=== PATIENT | female | born 1995 | race Caucasian/White ===

== ENCOUNTER 2016-06-08 10:44 | Inpatient (IN) | payer OTHER ==
[~2016-06-08] VITALS: Ht 160 cm; Wt 68.0 kg
[2016-06-08 10:54] VITALS: BP 110/55; Ht 160 cm; Wt 68.0 kg
[2016-06-08] MEDS ORDERED: PREN1TAB17 PO (10:56)
--- NOTE | 2016-06-08 11:39 | RADRPT ---
PROCEDURE: US biophysical profile. CLINICAL INDICATION: Decreased motion. TECHNIQUE: Multiple sonographic images of the uterus were obtained. The images were revi ewed on a PACS workstation. COMPARISON: No prior studies are available for comparison. FINDINGS: There is a single live intrauterine gestation. heart rate is 124 beats per minute. The position is cephalic. The placenta is fundal grade II with no abruption or previa. The FEI is 10.8 cm. (Normal = 5-20 cm.) Breathing Movement: 2 Gross Body Movement: 2 Tone: 2 Qualitative Amniotic Fluid Volume: 2 TOTAL: 8 IMPRESSION: 1. The biophysical score is 8/8. RPTAT: QQ .Darrick Arndt MD, MD Date Time Electronically viewed and signed by .Darrick Arndt MD, on 06/08/2016 11:39 .R/
[2016-06-08 12:08] LABS: ALBUMIN 3.2 g/dl (3.3-4.9)
[2016-06-08 12:09] LABS: POTASSIUM 3.7 mmol/L (3.5-5.1)
[2016-06-08 12:11] LABS: ALBUMIN/GLOBULIN RATIO 0.88; BILIRUBIN,INDIRECT 0.8 mg/dl (0-1.1); BILIRUBIN,TOTAL 0.8 mg/dl (0.2-1.3); CREATININE 0.47 mg/dl (0.44-1.00); TOTAL PROTEIN 6.8 g/dl (6.1-8.1)
[2016-06-08 12:12] LABS: CALCIUM 8.6 mg/dl (8.4-10.2)
--- NOTE | 2016-06-08 14:00 | TRIAGE ---
OB Triage Datetime Report Generated by CPN: 06/08/2016 13:59 Datetime: 06/08/2016 13:49 Vaginal Exam Dilatation (cms): 0.0 Effacement (%): 50 Station: -3 Exam By: DR. ZAY Datetime: 06/08/2016 13:07 Stage of : OB Triage Labor Evaluation Frequency: 0 Monitor Mode: External Pattern: Normal: <= 5 Contractions in 10 Minutes Resting Tone [place]: Non Relaxed Contraction Comments: PATIENT MOVING HAS 1 YEAR OLD INFANT ON HER STOMACH Heart Rate FHR Baseline Rate: 135 Monitor Mode: External US Decelerations: None Category: Category I Pain Assessment Pain Scale: 0 Datetime: 06/08/2016 11:51 Stage of : OB Triage Labor Evaluation Frequency: 0 Monitor Mode: External Heart Rate FHR Baseline Rate: 135 Monitor Mode: External US Decelerations: None Category: Category I Pain Presence: None/Denies Pain Type: N/A Datetime: 06/08/2016 10:58 Stage of : OB Triage Assessment Type: Triage EGA: 37.0 Time Provider Notified: 06/08/2016 11:03 Provider Notified: DR. Zay Maternal Assessment Level of Consciousness: Fully Conscious DTR's/Clonus: DTRs 2+; No Clonus Headache: Denies Blurred Vision: No Respiratory Effort: Unlabored; Regular Rhythm; Equal Expansion Breath Sounds, Left: Clear and Equal Breath Sounds, Right: Clear and Equal Nausea/Vomiting: Denies RUQ Epigastric Pain: Denies Lower Extremities Edema: None Degree: None Upper Extremities Edema: None Degree: None Facial Edema: None Temperature Route: Oral Fall Risk Assessment History of Falling: (0) No Secondary Diagnosis: (0) No Ambulatory Aid: (0) Bedrest/Nurse Assist IV Therapy: (0) No Gait: (0) Normal/Bedrest/Immobile Mental Status: (0) Oriented to Own Ability Fall Score: 0 Fall Risk Score Definition: No Risk: No action required Labor Evaluation Frequency: 0 Monitor Mode: External Heart Rate FHR Baseline Rate: 135 Monitor Mode: External US Variability: Moderate 6-25 bpm Accelerations: 15X15 Decelerations: None Category: Category I Pain Assessment Pain Scale: 0 Pain Presence: None/Denies Pain Type: N/A Datetime: 06/08/2016 10:57 Time of Arrival: 06/08/2016 10:40 Arrived By: Ambulatory Arrived From: Home Chief Complaint: ITCHING, FEET ARMS Movement: Present Rupture of Membranes: Denies Vaginal Bleeding: None Vaginal Discharge: Denies Recent Sexual Intercouse: Denies Abdominal Trauma: Not Applicable Patient Complaints: Other Time Provider Notified: 06/08/2016 11:03 Provider Notified: DR. COLLAZO Initial Plan: [id number], CALL MD, CALLED DR. COLLAZO ORDERS BPP/FEI, BILE ACIDS, CMP, SERUM LIPASE
[2016-06-08] MEDS ORDERED: METHYLERGONOVINE 0.2 MG INJ IM PRN (14:30)
[2016-06-08] MEDS ORDERED: OXYTOCIN 30 UNITS/LR 500 ML IV SCH ×2 (14:30)
[2016-06-08] MEDS ORDERED: MISOPROSTOL 200 MCG TAB PR PRN (14:30)
[2016-06-08] MEDS ORDERED: CARBOPROST 250 MCG INJ IM PRN (14:30)
[2016-06-08] MEDS ORDERED: LIDOCAINE 1% (MPF) 30 ML INJ INJ PRN (14:30)
[2016-06-08] MEDS ORDERED: DINOPROSTONE 10 MG VAG SUPP VAG ONE (14:30)
[2016-06-08] MEDS ORDERED: BUTORPHANOL 2 MG INJ IV PRN (14:30)
[2016-06-08] MEDS ORDERED: OXYTOCIN 30 UNITS/LR 500 ML IV PRN (14:30)
[2016-06-08] MEDS: LACTATED RINGER'S 1,000 ML IV SCH (16:33)
[2016-06-08 16:54] LABS: ADD SCAN DIFF NO
[2016-06-08 16:56] LABS: BASOPHILS % 0.2 % (0.0-2.0); EOSINOPHILS # 0.1 10^3/ul (0.0-0.5); HEMATOCRIT 29.6 % (37.0-47.0); HEMOGLOBIN 9.1 g/dl (12.0-16.0); LYMPHOCYTES # 2.1 10^3/ul (0.8-2.9); LYMPHOCYTES % 23.8 % (15.0-51.0); MEAN CORPUSCULAR HEMOGLOBIN 24.6 pg (29.0-33.0); MEAN CORPUSCULAR HGB CONC 30.7 g/dl (32.0-37.0); MEAN PLATELET VOLUME 10.8 fl (7.4-10.4); MONOCYTE # 0.5 10^3/ul (0.3-0.9); MONOCYTES % 5.4 % (0.0-11.0); NEUTROPHIL # 6.1 10^3/ul (1.6-7.5); NEUTROPHILS % 68.8 % (39.0-77.0); NUCLEATED RED BLOOD CELLS% 0.3 /100WBC (0.0-0.0); PLATELET COUNT 254 10^3/UL (140-415); RED CELL DISTRIBUTION WIDTH 15.9 % (11.5-14.5); WHITE BLOOD COUNT 8.9 10^3/ul (4.8-10.8)
--- NOTE | 2016-06-08 17:01 | HP ---
Date/Time of Note Date/Time of Note DATE: 06/08/16 TIME: 16:46 OB - History Hx of Present Free Text/Dictation This is a 20 years old female S 2 I 0 L3 admitted to [facility] with a chief complaint of total body itching started for 5 days prior to this admission patient is being admitted with tentative diagnosis of cholestasis of perinatology consult recommended delivery, pelvic examination on abdomen cervix closed effacement 50% presenting part vertex at - 3 station plan of delivery by induction of labor discussed with the patient and she is transferred to the L&D for induction / Estimated Due Date: June 29, 2016 : 7 Para: 3 Spontaneous : 2 Therapeutic : 0 Care: Good Care Ultrasounds: Normal mid trimester US Obstetrical Complications: None Medical Complications: None Past Family/Social History * Past Medical, Surgical, Family and Obstetric Histories reviewed from chart. Rubella: immune RPR/VDRL: Negative GBS Status: Negative HBsAG: Negative OB Admission Exam Vital Signs Vital Signs Vital Signs Date Time Temp Pulse Resp B/P Pulse Ox O2 Delivery O2 Flow Rate FiO2 06/08/16 10:54 98.0 110/55 Room Air Physical Exam HEENT: WNL Heart: Rhythm Normal Lungs: Clear, Equal Abdomen: WNL Extremities: Normal Reflexes: Normal Cervical Dilatation: None Effacement: 50% Station: -2 Membranes: Intact Heart Rate: 130's Accelerations: Accelerations Present Decelerations: No Decelerations Varibility: Absent Last 72 hours Lab Results CBC & BMP 06/08/16 11:40 Liver Function Test 06/08/16 11:40 Alanine Aminotransferase (ALT/SGPT) 14 Albumin 3.2 L Alkaline Phosphatase 118 Aspartate Amino Transf (AST/SGOT) 19 Direct Bilirubin 0.00 Total Protein 6.8 OB Assessment/Plan Reason for admission: induction of labor Plan: Induction MARGARET COLLAZO MD Jun 08, 2016 16:56
[2016-06-08 17:09] LABS: INR 1.03; PROTIME 13.5 Sec (12.2-14.2); PT RATIO 1.1
[2016-06-08 17:10] LABS: PARTIAL THROMBOPLASTIN TIME 29.5 Sec (25.0-35.0)
[2016-06-08] MEDS: LACTATED RINGER'S 1,000 ML IV PRN ×3 (22:10→23:55)
[2016-06-08] MEDS ORDERED: FENTAnyl 2MCG/ML-ROPIV 0.2% 100 ML ONE (23:47)
[2016-06-09] MEDS ORDERED: FENTAnyl 2MCG/ML-ROPIV 0.2% 100 ML BAG EPI SCH (00:30)
[2016-06-09] MEDS ORDERED: NALOXONE (0.4 MG/ML) INJ IV PRN (00:30)
[2016-06-09] MEDS: LACTATED RINGER'S 1,000 ML IV SCH (00:56)
[2016-06-09] MEDS: LACTATED RINGER'S 1,000 ML IV PRN ×2 (00:57→02:06)
[2016-06-09] MEDS ORDERED: OXYTOCIN 30 UNITS/LR 500 ML IV SCH (03:22)
[2016-06-09] MEDS: LACTATED RINGER'S 1,000 ML IV* SCH ×3 (03:22→19:22)
[2016-06-09] MEDS ORDERED: LANOLIN 7 GM TUBE TOP PRN (03:30)
[2016-06-09] MEDS ORDERED: MISOPROSTOL 200 MCG TAB PR PRN (03:30)
[2016-06-09] MEDS ORDERED: METHYLERGONOVINE 0.2 MG INJ IM PRN (03:30)
[2016-06-09] MEDS ORDERED: CARBOPROST 250 MCG INJ IM PRN (03:30)
[2016-06-09] MEDS ORDERED: OXYCODONE/ASPIRIN (4.88/325) TAB PO PRN (03:30)
[2016-06-09] MEDS ORDERED: OXYTOCIN 30 UNITS/LR 500 ML IV PRN (03:30)
--- NOTE | 2016-06-09 03:30 | LDN ---
Date/Time of Note Date/Time of Note DATE: 06/09/16 TIME: 03:27 Delivery Summary of a viable baby boy weighing 3190 grams or 7#1oz, 19" long, and with Apgars of 8/9. Weeks of Gestation 37w 1d Placenta Delivered: Spontaneously Meconium: none Episiotomy: No Perineal laceration: 0 Anesthesia type: Epidural Estimated blood loss: 200 Sponge & Needle done & correct: Yes All needle counts correct: Yes Any foreign bodies felt in the: No (vagina) Problems: Infant Delivery Information Sex Infant Sex: male Apgars 1 Minute: 8 5 Minute: 9 Suctioning Nose & mouth suctioned at toshia: No Delee suction performed: Yes Umbilical Cord Umbilical cord with: 3 Vessels Cord presentations: no nuchal cord Cord Blood was obtained: Yes Mother & Baby Disposition Disposition Mom & Baby to Maternity; Good: Yes Baby to NICU: No DINESH AYALA MD Jun 09, 2016 03:30
[2016-06-09 05:50] VITALS: BP 116/59; PULSE 69; RESP 20
[2016-06-09] MEDS: IBUPROFEN 600 MG TAB PO SCH ×3 (06:00→18:52)
[2016-06-09 08:00] VITALS: BP 106/57; PULSE 66; RESP 18
[2016-06-09 12:30] VITALS: BP 99/55; PULSE 80; RESP 19
[2016-06-09 16:41] VITALS: BP 108/51; PULSE 62; RESP 18
[2016-06-09 20:00] VITALS: BP 104/56; PULSE 61; RESP 19
[2016-06-10] MEDS: IBUPROFEN 600 MG TAB PO SCH ×4 (00:09→17:57)
[2016-06-10] MEDS: LACTATED RINGER'S 1,000 ML IV* SCH ×2 (01:12→06:40)
[2016-06-10 04:00] VITALS: BP 100/53; PULSE 74; RESP 18
[2016-06-10 08:10] VITALS: BP 104/56; PULSE 67; RESP 18
[2016-06-10 08:24] LABS: ADD SCAN DIFF NO
[2016-06-10 08:35] LABS: BASOPHILS % 0.3 % (0.0-2.0); EOSINOPHILS # 0.2 10^3/ul (0.0-0.5); EOSINOPHILS % 1.9 % (0.0-7.0); HEMATOCRIT 32.1 % (37.0-47.0); HEMOGLOBIN 9.3 g/dl (12.0-16.0); LYMPHOCYTES # 4.3 10^3/ul (0.8-2.9); LYMPHOCYTES % 36.4 % (15.0-51.0); MEAN CORPUSCULAR HEMOGLOBIN 24.1 pg (29.0-33.0); MEAN CORPUSCULAR VOLUME 83.2 fl (82.0-101.0); MEAN PLATELET VOLUME 11.2 fl (7.4-10.4); MONOCYTE # 0.8 10^3/ul (0.3-0.9); MONOCYTES % 6.3 % (0.0-11.0); NEUTROPHIL # 6.5 10^3/ul (1.6-7.5); NEUTROPHILS % 54.3 % (39.0-77.0); NUCLEATED RED BLOOD CELLS% 0.2 /100WBC (0.0-0.0); PLATELET COUNT 234 10^3/UL (140-415); RED BLOOD COUNT 3.86 10^6/ul (4.20-5.40); RED CELL DISTRIBUTION WIDTH 16.4 % (11.5-14.5); WHITE BLOOD COUNT 11.9 10^3/ul (4.8-10.8)
--- NOTE | 2016-06-10 09:13 | PN ---
Date/Time of Note Date/Time of Note DATE: 06/10/16 TIME: 09:12 OB Subjective Subjective Subjective Post normal vaginal day 1 Afebrile vital signs stable, abdomen soft uterus firm lochia moderate extremity normal Laboratory Tests Test 06/10/16 07:40 White Blood Count 11.910^3/ul Red Blood Count 3.8610^6/ul Hemoglobin 9.3g/dl Hematocrit 32.1% Mean Corpuscular Volume 83.2fl Mean Corpuscular Hemoglobin 24.1pg Mean Corpuscular Hemoglobin Concent 29.0g/dl Red Cell Distribution Width 16.4% Platelet Count 61508^3/UL Mean Platelet Volume 11.2fl Neutrophils % 54.3% Lymphocytes % 36.4% Monocytes % 6.3% Eosinophils % 1.9% Basophils % 0.3% Nucleated Red Blood Cells % 0.2/100WBC Neutrophils # 6.510^3/ul Lymphocytes # 4.310^3/ul Monocytes # 0.810^3/ul Eosinophils # 0.210^3/ul Basophils # 0.010^3/ul Nucleated Red Blood Cells # 0.010^3/ul Current Medications Medications (Trade) Dose Ordered Sig/Lisa Route PRN Reason Start Time Stop Time Status Last Admin Dose Admin Lactated Ringer's (Lr) 1,000 ml @ 125 mls/hr Q8H IV 06/08/16 14:10 06/09/16 03:26 DC 06/08/16 16:33 Dinoprostone (Cervidil Vaginal Supp) 10 mg ONCE ONCE VAG 06/08/16 14:30 06/08/16 14:31 DC 06/08/16 17:22 Butorphanol Tartrate (Stadol) 2 mg Q2H PRN IV PAIN 06/08/16 14:30 06/09/16 03:26 DC Lidocaine 30 ml 30 ml ONCE PRN INJ EPISIOTOMY/TEARING 06/08/16 14:30 06/09/16 03:26 DC Oxytocin/Lactated Ringer's 500 ml @ 125 mls/hr ONCE -MAY REPEAT X1 IV 06/08/16 14:30 06/09/16 03:26 DC 06/09/16 03:24 Oxytocin/Lactated Ringer's 500 ml @ 125 mls/hr ONCE IV 06/08/16 14:30 06/09/16 03:26 DC Oxytocin/Lactated Ringer's 500 ml @ 0 mls/hr ONCE PRN IV For Hemorrhage Management 06/08/16 14:30 06/09/16 03:27 DC Methylergonovine Maleate (Methergine) 0.2 mg ONCE PRN IM VAGINAL BLEEDING 06/08/16 14:30 06/09/16 03:27 DC Carboprost Tromethamine (Hemabate) 250 mcg ONCE PRN IM VAGINAL BLEEDING 06/08/16 14:30 06/09/16 03:27 DC Misoprostol 1000 mcg 1,000 mcg ONCE PRN [place] VAGINAL BLEEDING 06/08/16 14:30 06/09/16 03:27 DC Lactated Ringer's 1,000 ml @ 2,000 mls/hr Q30M PRN IV PRE-EPIDURAL BOLUS 06/08/16 22:10 06/09/16 03:27 DC 06/09/16 02:06 Fentanyl/ Ropivacaine 100 ml @ ud STK-MED ONCE .ROUTE 06/08/16 23:47 06/08/16 23:48 DC Naloxone HCl (Narcan) 0.2 mg Q2M PRN IV FOR RESP RATE 8 OR LESS 06/09/16 00:30 06/09/16 03:27 DC Fentanyl/ Ropivacaine 100 ml 100 ml EPIDURAL (PCEA) EPI 06/09/16 00:30 06/09/16 03:27 DC Oxytocin/Lactated Ringer's 500 ml @ 125 mls/hr Q4H IV 06/09/16 03:22 06/09/16 07:21 DC 06/09/16 03:30 Lactated Ringer's (Lr) 1,000 ml @ 125 mls/hr Q8H IV* 06/09/16 03:22 06/09/16 06:36 Ibuprofen (Motrin) 600 mg Q6 PO 06/09/16 06:00 06/10/16 05:21 Oxycodone/Aspirin (Percodan) 1 tab Q3H PRN PO PAIN LEVEL 1-5 06/09/16 03:30 06/09/16 22:19 Lanolin (Czv-A-Ltuwmf) 1 applic BEDSIDE MEDICATION PRN TOP BEDSIDE FOR CHRISTIAN TO NIPPLES 06/09/16 03:30 06/09/16 18:52 Diphtheria/ Tetanus/Acell Pertussis 0.5 ml 0.5 ml ONCE ONCE IM* 06/11/16 09:00 06/11/16 09:01 Oxytocin/Lactated Ringer's 500 ml @ 0 mls/hr ONCE PRN IV For Hemorrhage Management 06/09/16 03:30 Methylergonovine Maleate (Methergine) 0.2 mg ONCE PRN IM VAGINAL BLEEDING 06/09/16 03:30 Carboprost Tromethamine (Hemabate) 250 mcg ONCE PRN IM VAGINAL BLEEDING 06/09/16 03:30 Misoprostol (Cytotec) 1,000 mcg ONCE PRN [place] VAGINAL BLEEDING 06/09/16 03:30 MARGARET COLLAZO MD Jun 10, 2016 09:13
[2016-06-10 16:37] VITALS: BP 119/61; PULSE 52; RESP 17
[2016-06-10 19:30] VITALS: BP 131/68; PULSE 64; RESP 16
[2016-06-11] MEDS: IBUPROFEN 600 MG TAB PO SCH ×5 (00:41→18:00)
[2016-06-11 04:00] VITALS: BP 117/64; PULSE 66; RESP 18
[2016-06-11 08:00] VITALS: BP 117/57; PULSE 65; RESP 18
[2016-06-11] MEDS ORDERED: DIPHTH/TET/ACEL PERTUSS (ADULT) 0.5 ML VIAL IM* ONE (09:00)
--- NOTE | 2016-06-11 09:57 | PD.PPDC ---
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 Condition Patient Condition: Good Diet Diet: Resume Regular Diet Activity/Restrictions Activity: Normal Activity May Shower Restrictions: No Exercising No Lifting No Driving No Sexual Activity Nothing in the Vagina No [place] No Tampons, douche Follow-up Follow-up with Physician: 2, Week/Weeks Provider Information: Appointment clinic in 2 weeks for check Return to clinic for HOME AIDE Instructions: Fever greater than 101 Chills Worsening abdominal pain Excessive Vaginal Bleeding More than 2 pads per hour Unable to tolerate diet OB Instructions: Depression Blurried Vision Headache MARGARET COLLAZO MD Jun 11, 2016 09:57
--- NOTE | 2016-06-11 09:59 | DS ---
Date/Time of Note Date/Time of Note DATE: 06/11/16 TIME: 09:58 Discharge Summary Admission/Discharge Info Admit Date/Time Jun 08, 2016 at 14:01 Discharge Date/Time June 11, 2016 at 1055 Final Diagnosis Day 2 post normal vaginal delivery Patient Condition: Good Procedures Normal vaginal delivery Hx of Present Illness Term Hospital Course Uneventful Home Meds Reported Medications Vit-Iron Fumarate-FA ( Tablet) 1 Each Tablet, 1 TAB PO DAILY, TAB 06/08/16 Follow-up Plan Appointment clinic in 2 weeks for follow-up MARGARET COLLAZO MD Jun 11, 2016 09:59
[2016-06-11 16:09] VITALS: BP 124/69; PULSE 54; RESP 20
[2016-06-12 17:33] LABS: CHENODEOXYCHOLIC ACID 0.7 umol/L (< OR = 3.1); CHOLIC ACID <0.5 umol/L (< OR = 1.8); DEOXYCHOLIC ACID <0.5 umol/L (< OR = 2.4); TOTAL BILE ACIDS <1.5 umol/L (< OR = 6.8)
== END 2016-06-11 18:15 | disposition home or self-care (01) | DRG 775 ==
LOC: OBT 10:44 → L-D 10:45 → OBT 13:59 → L-D 14:01 → PP1 06-09 05:50
PROVIDERS: ADMIT Obstetrics & Gynecology; ATTEND Obstetrics & Gynecology
PROC: 4A1HX4Z Monitoring of Products of Conception, Cardiac Electrical Activity, External Approach (ICD-10-PCS; 2016-06-08)
PROC: 10E0XZZ Delivery of Products of Conception, External Approach (ICD-10-PCS; principal; 2016-06-09)
DX: O26.893 Other specified pregnancy related conditions, third trimester (principal); L29.9 Pruritus, unspecified; Z3A.37 37 weeks gestation of pregnancy; Z37.0 Single live birth
CPT/HCPCS: 62319; 76818; 80053; 83690; 83789; 85025; 85610; 85730; 86592; 86900; 86901; 87340; 90715; G0463; J2590; J3010; J7120

== ENCOUNTER 2016-12-01 22:24 | Emergency (ER) | END 2016-12-02 02:50 | disposition home or self-care (01) | DX: R10.10 Upper abdominal pain, unspecified (principal) | CPT/HCPCS: 36415; 76705; 80053; 81001; 83690; 85025; Z7502 ==

== ENCOUNTER 2017-01-01 21:38 | Emergency (ER) | payer OTHER ==
[~2017-01-01] VITALS: Ht 154.9 cm; Wt 61.8 kg
[~2017-01-01 21:38] MED LIST: MAG-19 PO; OMEP20CA16 PO; ONDA4TAB14 PO; PREN1TAB17 PO
[2017-01-01 21:48] VITALS: Ht 154.9 cm; Wt 61.8 kg
--- NOTE | 2017-01-01 21:58 | ERD ---
ER Documentation Chief Complaint Chief Complaint Right flank pain x3 days. Denies dysuria and hematuria HPI This 21 yr old female right sided pelvic pain, late menstruation, hx of ectopic ROS All systems reviewed and are negative except as per history of present illness. Medications Home Meds Active Scripts Nitrofurantoin Monohyd Macrocr* (Macrobid*) 100 Mg Capsr, 100 MG PO BID for 7 Days, #14 CAP Prov:NICOLE,DWIGHT 01/02/17 [id number] Acid ([place] Chewable) 1 Each Tab.chew, 1 TAB PO DAILY for 30 Days, TAB.CHEW Prov:NICOLE,DWIGHT 01/02/17 Ondansetron (Ondansetron Odt) 4 Mg Tab.rapdis, 4 MG PO Q8 Y for NAUSEA AND/OR VOMITING, #30 TAB Prov:MATEUS HERNNADEZ NP 12/02/16 Magaldrate/Simethicone* (Mylanta*) 355 Ml Susp, 30 ML PO QID Y for GASTROINTESTINAL UPSET, #1 BOTTLE Prov:MATEUS HERNANDEZ NP 12/02/16 Omeprazole* (Omeprazole*) 20 Mg Capsule.dr, 20 MG PO DAILY, #30 Prov:MATEUS HERNANDEZ NP 12/02/16 Reported Medications Vit-Iron Fumarate-FA ( Tablet) 1 Each Tablet, 1 TAB PO DAILY, TAB 06/08/16 Allergies Allergies: Coded Allergies: No Known Allergies (Verified Allergy, Unknown, 01/01/17) PMhx/Soc Hx Alcohol Use: No Hx Substance Use: No Hx Tobacco Use: No Physical Exam Vitals Vital Signs Date Time Temp Pulse Resp B/P Pulse Ox O2 Delivery O2 Flow Rate FiO2 01/01/17 21:48 98.8 71 18 117/68 99 Physical Exam Const: [] Head: Atraumatic Eyes: Normal Conjunctiva ENT: Normal External Ears, Nose and Mouth. Neck: Full range of motion..~ No meningismus. Resp: Clear to auscultation bilaterally Cardio: Regular rate and rhythm, no murmurs Abd: Soft, non tender, non distended. Normal bowel sounds Skin: No petechiae or rashes Back: No midline or flank tenderness Ext: No cyanosis, or edema Neur: Awake and alert Psych: Normal Mood and Affect Result Diagram: 01/02/17 0040 01/02/17 0040 Results 24 hrs Laboratory Tests Test 01/01/17 23:05 01/02/17 00:40 Urine Color YELLOW Urine Clarity SLIGHTLY CLOUDY Urine pH 5.0 Urine Specific [place] 1.027 Urine Ketones NEGATIVEmg/dL Urine Nitrite NEGATIVEmg/dL Urine Bilirubin NEGATIVEmg/dL Urine Urobilinogen 1+mg/dL Urine Leukocyte Esterase 1+Cres[place]encio/ul Urine Microscopic RBC 2/HPF Urine Microscopic WBC 9/HPF Urine Squamous Epithelial Cells FEW/HPF Urine Bacteria FEW/HPF Urine Mucus FEW/HPF Urine Hemoglobin NEGATIVEmg/dL Urine Glucose NEGATIVEmg/dL Urine Total Protein NEGATIVEmg/dl White Blood Count 10.610^3/ul Red Blood Count 4.1010^6/ul Hemoglobin 12.2g/dl Hematocrit 36.9% Mean Corpuscular Volume 90.0fl Mean Corpuscular Hemoglobin 29.8pg Mean Corpuscular Hemoglobin Concent 33.1g/dl Red Cell Distribution Width 13.4% Platelet Count 28418^3/UL Mean Platelet Volume 10.8fl Neutrophils % 50.1% Lymphocytes % 39.3% Monocytes % 7.3% Eosinophils % 2.5% Basophils % 0.5% Nucleated Red Blood Cells % 0.0/100WBC Neutrophils # 5.310^3/ul Lymphocytes # 4.210^3/ul Monocytes # 0.810^3/ul Eosinophils # 0.310^3/ul Basophils # 0.110^3/ul Nucleated Red Blood Cells # 0.010^3/ul Sodium Level 143mmol/L Potassium Level 3.9mmol/L Chloride Level 107mmol/L Carbon Dioxide Level 24mmol/L Anion Gap 16 Blood Urea Nitrogen 15mg/dl Creatinine 0.61mg/dl Glucose Level 116mg/dl Calcium Level 9.3mg/dl Total Bilirubin 0.4mg/dl Direct Bilirubin 0.00mg/dl Indirect Bilirubin 0.4mg/dl Aspartate Amino Transf (AST/SGOT) 20IU/L Alanine Aminotransferase (ALT/SGPT) 25IU/L Alkaline Phosphatase 101IU/L Total Protein 7.3g/dl Albumin 4.1g/dl Globulin 3.20g/dl Albumin/Globulin Ratio 1.28 Beta HCG, Quantitative 6285.1mIU/ml Current Medications Medications (Trade) Dose Ordered Sig/Lisa Route PRN Reason Start Time Stop Time Status Last Admin Dose Admin Acetaminophen (Tylenol Tab) 650 mg ONCE ONCE PO 01/01/17 22:00 01/01/17 22:02 DC 01/01/17 22:45 Interpretation text CBC shows no evidence of hemorrhage or infection Chemistry shows no evidence of significant electrolyte abnormalities or renal insufficiency Liver function tests shows no evidence of acute biliary or hepatic dysfunction Beta hCG qualitative 6285.1, suggestive of -6 weeks Urinalysis positive for leukocytosis suggestive of infection. Procedures/MDM PROCEDURE: Ultrasound pelvis. CLINICAL INDICATION: Pelvic pain. TECHNIQUE: Multiple sonographic images of the pelvis were obtained utilizing a transabdominal and transvaginal technique. COMPARISON: None available FINDINGS: Uterus: 8.9 x 6.2 x 8.8 cm. Normal in size and echogenicity with no mass lesion identified. Endometrium: 18 mm in thickness. There is free fluid within the endometrial canal. There is a 7 x 3 mm cystic structure within the endometrium remote from the fluid, which is nonspecific, but may reflect a gestational sac. No pole or yolk sac is identified. Right ovary: Not identified. Left ovary: Not identified. Adnexa: No masses or sonographic abnormality. Free fluid: None. IMPRESSION: 1. Thickened endometrium with nonspecific trace fluid in the endometrial canal. 2. Nonspecific 7 x 3 mm cystic structure within the endometrial remote from the fluid, which may reflect a gestational sac. Correlation with beta HCG as well as short interval follow-up is recommended. RPTAT: HLBP .Redd Jose MD, Date Time Electronically viewed and signed by .Redd Jose MD, MD on 01/02/2017 00:06 21-year-old and 9 para 4, female presents to emergency department with abdominal pain, history of ectopic , 3 days late on menstruation. Patient has not done any [id number]-bqynajg urine test to find if she is . Denies nausea, vomiting, breast tenderness, or dysuria. Emergency room course includes history and physical exam, plan to check for urine and urinalysis, have a non-OB ultrasound, patient ultrasound findings per radiology 1 thickened endometrium with nonspecific trace fluid in the endometrial canal. 2 nonspecific 7 x 3 mm cystic structure within the endometrial remote from the fluid which may reflect a gestational sac correlation with beta hCG as well as short interval follow-up is recommended. Urine positive, serology negative for hemorrhage, infection, electrolyte imbalance, renal insufficiency, hepatitis. Urinalysis positive for leukocytosis suggestive of infection, beta quantitative hCG positive 6285.1mIU/ ml suggestive of 5 months . Plan to have patient return in 48 hours for repeat serology and a OB ultrasound. Return to emergency department for abdominal pain, vaginal bleeding, or worsening of symptoms. Patient is stable with no new complaints during ER course, clinically there is no current evidence to suggest pyelonephritis, ovarian torsion, , sepsis, acute abdomen, or any other emergent condition appearing to require further evaluation or hospitalization. I feel the patient is stable for discharge at this time. I have discussed results, examination findings, the treatment plan with the patient and family present prior to discharge. Indications for emergent reevaluation, side effects of medication were also discussed. All questions were answered. Patient verbalizes understanding and agrees with plan of care. Departure Diagnosis: Primary Impression: at early stage Additional Impression: UTI (urinary tract infection) Urinary tract infection type: acute cystitis Hematuria presence: without hematuria Qualified Code: N30.00 - Acute cystitis without hematuria Condition: Good Patient Instructions: Abdominal Pain, Early Referrals: [employer] [employer] REFERRAL LIST Additional Instructions: Thank you for for coming [facility] for your care today. Please ask your nurse or provider if you have questions about your care today and do not leave until all your questions have been answered. Please use any medications given as directed and follow-up with your doctor (or the doctor you were referred to) in the next 2-3 days. If you do not have a primary care doctor you may follow up at the [facility] (listed below). You may also use motrin and tylenol as needed for fever and/or pain unless instructed otherwise by your provider or nurse. Indications for more urgent follow-up have been discussed, but you may return to the Emergency Department at ANY time for any worrisome or worsening symptoms. If you have abdominal pain, please know that no test or exam you received is perfect and you should follow up within 8 hours for continued pain. If you had any imaging studies today, such as an X-Ray or CT Scan, these studies will be reviewed later by a radiologist. You will be called if there are important findings that were not identified today, so make sure the contact information you provided at registration is correct. If you received any narcotic pain control medicine today, such as Vicodin, Morphine or Dilaudid, your coordination and judgment may be affected for a number of hours. Please do not drive or operate heavy machinery, and you may want someone to assist you at home. If you were given a prescription for narcotic medication, be aware that it is very addictive- use sparingly and only if necessary. DWIGHT RIVERA Jan 01, 2017 21:58
[2017-01-01] MEDS ORDERED: ACETAMINOPHEN 325 MG TAB PO ONE (22:00)
[2017-01-01 23:54] LABS: ADD UMIC YES; UR ASCORBIC ACID NEGATIVE (NEGATIVE); UR BACTERIA FEW /HPF (NONE SEEN); UR BILIRUBIN (Dip) NEGATIVE (NEGATIVE); UR BLOOD (Dip) NEGATIVE (NEGATIVE); UR CLARITY SLIGHTLY CLOUDY (CLEAR); UR COLOR YELLOW (YELLOW); UR GLUCOSE (Dip) NEGATIVE (NEGATIVE); UR KETONES (Dip) NEGATIVE (NEGATIVE); UR LEUKOCYTE ESTERASE (Dip) 1+ Leu/ul (NEGATIVE); UR MUCUS FEW /HPF (NONE SEEN); UR NITRITE (Dip) NEGATIVE (NEGATIVE); UR RBC 2 /HPF (0-5); UR SPECIFIC GRAVITY (Dip) 1.027 (1.003-1.030); UR SQUAMOUS EPITHELIAL CELL FEW /HPF (FEW); UR TOTAL PROTEIN (Dip) NEGATIVE (NEGATIVE); UR UROBILINOGEN (Dip) 1+ mg/dL (NEGATIVE)
--- NOTE | 2017-01-02 00:06 | RADRPT ---
PROCEDURE: Ultrasound pelvis. CLINICAL INDICATION: Pelvic pain. TECHNIQUE: Multiple sonographic images of the pelvis were obtained utilizing a transabdominal and transvaginal technique. COMPARISON: None available FINDINGS: Uterus: 8.9 x 6.2 x 8.8 cm. Normal in size and echogenicity with no mass lesion identified. Endometrium: 18 mm in thickness. There is free fluid within the endometrial canal. There is a 7 x 3 mm cystic structure within the endometrium remote from the fluid, which is nonspecific, but may ref lect a gestational sac. No pole or yolk sac is identified. Right ovary: Not identified. Left ovary: Not identified. Adnexa: No masses or sonographic abnormality. Free fluid: None. IMPRESSION: 1. Thickened endometrium with nonspecific trace fluid in the endometrial canal. 2. Nonspecific 7 x 3 mm cystic structure within the endometrial remote from the fluid, which may re flect a gestational sac. Correlation with beta HCG as well as short interval follow-up is recommende d. RPTAT: HLBP .Redd Jose MD, Date Time Electronically viewed and signed by .Redd Jose MD, on 01/02/2017 00:06 .P/
[2017-01-02 00:57] LABS: BASOPHIL # 0.1 10^3/ul (0.0-0.1); BASOPHILS % 0.5 % (0.0-2.0); EOSINOPHILS # 0.3 10^3/ul (0.0-0.5); EOSINOPHILS % 2.5 % (0.0-7.0); HEMATOCRIT 36.9 % (37.0-47.0); HEMOGLOBIN 12.2 g/dl (12.0-16.0); LYMPHOCYTES # 4.2 10^3/ul (0.8-2.9); LYMPHOCYTES % 39.3 % (15.0-51.0); MEAN CORPUSCULAR HEMOGLOBIN 29.8 pg (29.0-33.0); MEAN CORPUSCULAR HGB CONC 33.1 g/dl (32.0-37.0); MEAN PLATELET VOLUME 10.8 fl (7.4-10.4); MONOCYTE # 0.8 10^3/ul (0.3-0.9); MONOCYTES % 7.3 % (0.0-11.0); NEUTROPHIL # 5.3 10^3/ul (1.6-7.5); NEUTROPHILS % 50.1 % (39.0-77.0); PLATELET COUNT 245 10^3/UL (140-415); RED CELL DISTRIBUTION WIDTH 13.4 % (11.5-14.5); WHITE BLOOD COUNT 10.6 10^3/ul (4.8-10.8)
[2017-01-02 01:40] LABS: ALBUMIN 4.1 g/dl (3.3-4.9); ALBUMIN/GLOBULIN RATIO 1.28; BILIRUBIN,INDIRECT 0.4 mg/dl (0-1.1); BILIRUBIN,TOTAL 0.4 mg/dl (0.2-1.3); CALCIUM 9.3 mg/dl (8.4-10.2); CREATININE 0.61 mg/dl (0.44-1.00); POTASSIUM 3.9 mmol/L (3.5-5.1); TOTAL PROTEIN 7.3 g/dl (6.1-8.1)
[2017-01-02] MEDS ORDERED: NITR-58 PO (02:08)
[2017-01-02] MEDS ORDERED: PREN-47 PO (02:08)
[2017-01-13] MEDS ORDERED: TRAM50TA2 PO (23:47)
[2017-01-13] MEDS ORDERED: Methergine PO (23:47)
[2017-01-13] MEDS ORDERED: IBUP-1542 PO (23:47)
== END 2017-01-02 04:53 | disposition left against medical advice (07) ==
LOC: FTE 21:38
DX: O23.11 Infections of bladder in pregnancy, first trimester (principal); R10.2 Pelvic and perineal pain; Z3A.01 Less than 8 weeks gestation of pregnancy
CPT/HCPCS: 76830; 76856; 80053; 81001; 84702; 85025; Z7502; Z7610

== ENCOUNTER 2017-01-11 19:21 | Emergency (ER) | payer OTHER ==
[~2017-01-11] VITALS: Ht 160 cm; Wt 61.0 kg
[~2017-01-11 19:21] MED LIST changes: +NITR-58 PO; +PREN-47 PO
[2017-01-11 19:55] VITALS: Ht 160 cm; Wt 61.0 kg
[2017-01-11] MEDS ORDERED: ACETAMINOPHEN 500 MG TAB PO STA (21:49)
[2017-01-11] MEDS ORDERED: METOCLOPRAMIDE 10 MG TAB PO ONE (22:00)
[2017-01-11 22:06] LABS: BASOPHIL # 0.1 10^3/ul (0.0-0.1); BASOPHILS % 0.4 % (0.0-2.0); EOSINOPHILS # 0.1 10^3/ul (0.0-0.5); EOSINOPHILS % 1.3 % (0.0-7.0); HEMATOCRIT 39.1 % (37.0-47.0); LYMPHOCYTES # 3.3 10^3/ul (0.8-2.9); LYMPHOCYTES % 29.3 % (15.0-51.0); MEAN CORPUSCULAR HEMOGLOBIN 30.1 pg (29.0-33.0); MEAN CORPUSCULAR HGB CONC 33.2 g/dl (32.0-37.0); MEAN CORPUSCULAR VOLUME 90.5 fl (82.0-101.0); MEAN PLATELET VOLUME 9.5 fl (7.4-10.4); MONOCYTE # 0.7 10^3/ul (0.3-0.9); MONOCYTES % 5.8 % (0.0-11.0); NEUTROPHILS % 62.9 % (39.0-77.0); PLATELET COUNT 234 10^3/UL (140-415); RED BLOOD COUNT 4.32 10^6/ul (4.20-5.40); WHITE BLOOD COUNT 11.2 10^3/ul (4.8-10.8)
--- NOTE | 2017-01-11 22:48 | RADRPT ---
PROCEDURE: US OB. CLINICAL INDICATION: Vaginal bleeding. TECHNIQUE: Transabdominal and transvaginal sonographic evaluation of the pelvis using shell scale an d color Doppler imaging was performed. COMPARISON: Ultrasound dated 01/01/2017. FINDINGS: Single intrauterine with a pole and yolk sac. The crown-rump length equals 0.95 cm. The estimated gestational age equals 7 weeks 2 days by ultrasound criteria. Normal cardiac activity is identified with a HR of 133 bpm. There are 2 foci of subchorionic hemorrhage, the largest measuring 1.6 x 1.1 x 1.5 cm. Right ovary: 3.0 x 2.1 x 2.8 cm. Normal flow and echogenicity. Left ovary: 2.6 x 2.0 x 3.0 cm. Normal flow and echogenicity. Benign left ovarian cyst measuring 1.8 cm. IMPRESSION: 1. Single viable intrauterine with an estimated gestational age of 7 weeks 2 days by ultr asound criteria and an estimated date of delivery of 08/28/2017. 2. Subchorionic hemorrhage at 2 separate foci, the largest measuring 1.6 x 1.1 x 1.5 cm. Short inte rval follow-up is recommended. RPTAT: HLBP .Redd Jose MD, Date Time Electronically viewed and signed by .Redd Jose MD, on 01/11/2017 22:47 .P/
[2017-01-12 00:16] LABS: URINE BLOOD (Dip) POC 3+ (NEGATIVE)
[2017-01-12] MEDS ORDERED: ACET500C5 PO (00:26)
[2017-01-12] MEDS ORDERED: METO10TA92 PO (00:27)
--- NOTE | 2017-01-12 04:29 | ERD ---
ER Documentation Chief Complaint Chief Complaint 7 weeks preg and bleeding, with cramping HPI Patient is a 21-year-old female, , who presents to the ED for concerns of vaginal bleeding 1 day. Patient states that yesterday she started having spotting. Today she states that she passed dark blood clots. Patient is concerned that she may be having a miscarriage. She reports current and lower back pain. Patient 100s, trauma or falls. Patient does admit to nausea and vomiting. Patient denies any fevers or chills. Patient denies any dysuria, frequency, urgency or diarrhea. Does not recall last period however patient estimates it was approximately 2 months ago. ROS All systems reviewed and are negative except as per history of present illness. Medications Home Meds Active Scripts Metoclopramide* (Reglan*) 10 Mg Tablet, 10 MG PO Q6 Y for NAUSEA AND/OR VOMITING , #10 TAB Prov:ANH MICHAELS PA-C 01/12/17 Acetaminophen* (Tylophen*) 500 Mg Capsule, 1 CAP PO Q6H Y for PAIN AND OR ELEVATED TEMP, #20 CAP Prov:ANH MICHAELS PA-C 01/12/17 Nitrofurantoin Monohyd Macrocr* (Macrobid*) 100 Mg Capsr, 100 MG PO BID for 7 Days, #14 CAP Prov:NICOLE,DWIGHT 01/02/17 Ghj88-Jtxp-Rwblf Acid (Prenata Chewable) 1 Each Tab.chew, 1 TAB PO DAILY for 30 Days, TAB.CHEW Prov:NICOLE,DWIGHT 01/02/17 Ondansetron (Ondansetron Odt) 4 Mg Tab.rapdis, 4 MG PO Q8 Y for NAUSEA AND/OR VOMITING, #30 TAB Prov:MATEUS HERNANDEZ NP 12/02/16 Magaldrate/Simethicone* (Mylanta*) 355 Ml Susp, 30 ML PO QID Y for GASTROINTESTINAL UPSET, #1 BOTTLE Prov:MATEUS HERNANDEZ NP 12/02/16 Omeprazole* (Omeprazole*) 20 Mg Capsule.dr, 20 MG PO DAILY, #30 Prov:MATEUS HERNANDEZ NP 12/02/16 Reported Medications Vit-Iron Fumarate-FA ( Tablet) 1 Each Tablet, 1 TAB PO DAILY, TAB 06/08/16 Allergies Allergies: Coded Allergies: No Known Allergies (Verified Allergy, Unknown, 01/01/17) PMhx/Soc Medical and Surgical Hx: pt denies Medical Hx, pt denies Surgical Hx Hx Alcohol Use: No Hx Substance Use: No Hx Tobacco Use: No Smoking Status: Never smoker Physical Exam Vitals Vital Signs Date Time Temp Pulse Resp B/P Pulse Ox O2 Delivery O2 Flow Rate FiO2 01/11/17 19:55 98.2 71 16 126/71 100 Physical Exam GENERAL: Well-developed, well-nourished female. Appears in no acute distress. HEAD: Normocephalic, atraumatic. EYES: Pupils are equally reactive bilaterally. EOMs grossly intact. No conjunctival erythema. ENT: Moist mucous membranes. No uvula deviation. No kissing tonsils. NECK: Supple. No meningismus. Normal range of motion of the neck. LUNG: Clear to auscultation bilaterally. No rhonchi, wheezing, rales or coarse breath sounds. HEART: Regular rate and rhythm. No murmurs, rubs or gallops. ABDOMEN: Soft, and nondistended. Tender to palpation in the suprapubic region. Positive bowel sounds in all four quadrants. No rebound tenderness, no guarding. (-) McBurney's point tenderness. No CVA tenderness. BACK: No midline tenderness. EXTREMITIES: Equal pulses bilaterally. No peripheral clubbing, cyanosis or edema. No unilateral leg swelling. NEUROLOGIC: Alert and oriented. Moving all four extremities without any difficulty. Normal speech. Steady gait. SKIN: Normal color. Warm and dry. No rashes or lesions. Result Diagram: 01/11/172156 Results 24 hrs Laboratory Tests Test 01/11/17 21:57 01/12/17 00:14 White Blood Count 11.210^3/ul Red Blood Count 4.3210^6/ul Hemoglobin 13.0g/dl Hematocrit 39.1% Mean Corpuscular Volume 90.5fl Mean Corpuscular Hemoglobin 30.1pg Mean Corpuscular Hemoglobin Concent 33.2g/dl Red Cell Distribution Width 13.0% Platelet Count 46180^3/UL Mean Platelet Volume 9.5fl Neutrophils % 62.9% Lymphocytes % 29.3% Monocytes % 5.8% Eosinophils % 1.3% Basophils % 0.4% Nucleated Red Blood Cells % 0.0/100WBC Neutrophils # 7.010^3/ul Lymphocytes # 3.310^3/ul Monocytes # 0.710^3/ul Eosinophils # 0.110^3/ul Basophils # 0.110^3/ul Nucleated Red Blood Cells # 0.010^3/ul Beta HCG, Quantitative 19329.0mIU/ml Bedside Urine pH (LAB) 6.0 Bedside Urine Protein (LAB) 2+ Bedside Urine Glucose (UA) Negative Bedside Urine Ketones (LAB) Negative Bedside Urine Blood 3+ Bedside Urine Nitrite (LAB) Negative Bedside Urine Leukocyte Esterase (L Trace Current Medications Medications (Trade) Dose Ordered Sig/Lisa Route PRN Reason Start Time Stop Time Status Last Admin Dose Admin Metoclopramide HCl (Reglan) 10 mg ONCE ONCE PO 01/11/17 22:00 01/11/17 22:01 DC 01/11/17 22:19 Acetaminophen (Tylenol Tab) 1,000 mg ONCE STAT PO 01/11/17 21:49 01/11/17 21:50 DC 01/11/17 22:19 Procedures/MDM ED COURSE: The patient was stable throughout ED course. I kept the patient and/or family informed of laboratory and diagnostic imaging results throughout the ED course. DIAGNOSTIC IMAGING: Read by radiologist. Patient: JEAN-PIERRE WEST : 1995 Age: 21 Sex: F [id number] DOS: 01/11/17 2148 Ordering MD: ANH MICHAELS PA-C Location: [facility] Room/Bed: PROCEDURE: US OB. CLINICAL INDICATION: Vaginal bleeding. TECHNIQUE: Transabdominal and transvaginal sonographic evaluation of the pelvis using shell scale and color Doppler imaging was performed. COMPARISON: Ultrasound dated 01/01/2017. FINDINGS: Single intrauterine with a pole and yolk sac. The crown-rump length equals 0.95 cm. The estimated gestational age equals 7 weeks 2 days by ultrasound criteria. Normal cardiac activity is identified with a HR of 133 bpm. There are 2 foci of subchorionic hemorrhage, the largest measuring 1.6 x 1.1 x 1.5 cm. Right ovary: 3.0 x 2.1 x 2.8 cm. Normal flow and echogenicity. Left ovary: 2.6 x 2.0 x 3.0 cm. Normal flow and echogenicity. Benign left ovarian cyst measuring 1.8 cm. IMPRESSION: 1. Single viable intrauterine with an estimated gestational age of 7 weeks 2 days by ultrasound criteria and an estimated date of delivery of 2017. 2. Subchorionic hemorrhage at 2 separate foci, the largest measuring 1.6 x 1.1 x 1.5 cm. Short interval follow-up is recommended. RPTAT: HLBP .Redd Jose MD, Date Time Electronically viewed and signed by .Redd Jose MD, on 01/11/2017 22:47 .P/ CC: ANH MICHAELS PA-C PROCEDURES: None. MEDICATIONS GIVEN: Reglan Patient tolerated medication well with no adverse reactions. MEDICAL DECISION MAKING: This is a 21-year-old female, , who presents ED for concerns of vaginal bleeding charted yesterday. Vital signs were reviewed. Patient was afebrile. Patient was hemodynamically stable. Quantitative b-HCG was 13790. Patient was O+, no indication for RhoGam at this time. CBC showed no evidence of severe anemia. Patient's white count was noted to be 11.2. Elevation likely due to state versus vomiting. Pelvic US showed 1. Single viable intrauterine with an estimated gestational age of 7 weeks 2 days by ultrasound criteria and an estimated date of delivery of 08/28/2017. 2. Subchorionic hemorrhage at 2 separate foci, the largest measuring 1.6 x 1.1 x 1.5 cm. Short interval follow-up is recommended. Prior to discharge, patient notified me that she passed a large blood clot which was fetus-like in appearance to her. Patient states she had flushed this specimen down the toilet. I did offer the patient repeat ultrasound testing however she declined. Patient was advised to return to the ED in 2 days for repeat beta-hCG and ultrasound. Given these findings, the patient's presentation is most consistent with threatened and subchorionic hematoma vs demise. I have a much lower clinical concern for ectopic , ruptured ectopic , molar , incomplete , complete , missed , placental abruption, placental previa, vasa previa, uterine rupture, anembyronic . PRESCRIPTIONS: Tylenol, Reglan DISCHARGE: At this time, patient is stable for discharge and outpatient management. I had a conversation at length with the patient about the concerns of vaginal bleeding during the 1st trimester of . Patient and/or family understands that her vaginal bleeding can be a normal finding or a sign of miscarriage. I have instructed the patient to follow-up with her OBGYN in 1-2 days for further monitoring including a repeat b-HCG level. I have instructed the patient to promptly return to the ER at any time for any new or worsening symptoms including increased pain, nausea, vomiting, continued bleeding, weakness, syncope or fever. The patient and/or family expressed understanding of and agreement with this plan. All questions were answered. Home care instructions were provided. Disclaimer: Inadvertent spelling and grammatical errors are likely due to EHR/ dictation software use and do not reflect on the overall quality of patient care. Also, please note that the electronic time recorded on this note does not necessarily reflect the actual time of the patient encounter. Departure Diagnosis: Primary Impression: Vaginal bleeding in patient at less than 20 weeks ges... Additional Impression: Subchorionic hematoma in first trimester Fetus number: single or unspecified fetus Qualified Code: O41.8X10 - Subchorionic hematoma in first trimester, single or unspecified fetus Condition: Stable Patient Instructions: Bleeding During Early Additional Instructions: Return to the ED in 2 days for repeat beta-hCG and ultrasound. Call your primary care doctor TOMORROW for an appointment during the next 1-2 days.See the doctor sooner or return here if your condition worsens before your appointment time. ANH MICHAELS PA-C Jan 12, 2017 04:29
[2017-01-13] MEDS ORDERED: TRAM50TA2 PO (23:47)
[2017-01-13] MEDS ORDERED: Methergine PO (23:47)
[2017-01-13] MEDS ORDERED: IBUP-1542 PO (23:47)
== END 2017-01-12 00:36 | disposition home or self-care (01) ==
LOC: FTE 19:21
DX: O41.8X11 Other specified disorders of amniotic fluid and membranes, first trimester, fetus 1 (principal); R10.2 Pelvic and perineal pain; Z3A.01 Less than 8 weeks gestation of pregnancy
CPT/HCPCS: 76801; 81003; 84702; 85025; 86900; 86901; Z7502; Z7610

== ENCOUNTER → 2017-01-13 | Emergency (ER) | payer OTHER ==
[~2017-01-13] VITALS: Ht 160 cm; Wt 62.2 kg
[~2017-01-13] MED LIST changes: +ACET500C5 PO; +IBUP-1542 PO; +METO10TA92 PO; +Methergine PO; +TRAM50TA2 PO
[2017-01-13 19:30] VITALS: Ht 160 cm; Wt 62.2 kg
--- NOTE | 2017-01-13 22:13 | RADRPT ---
PROCEDURE: US Pelvis. CLINICAL INDICATION: vaginal bleeding TECHNIQUE: Multiple sonographic images of the pelvis were obtained utilizing a transabdominal and endovaginal technique. The images were reviewed on a PACS workstation. COMPARISON: 01/11/17 FINDINGS: The uterus is normal in size and demonstrates a normal appearance of the myometrium. The endometria l stripe is heterogeneous in appearance and has the thickness of 21 mm. There is slightly increased vascularity. Previously seen intrauterine gestation is no longer visualized. The ovaries are normal in size and echogenicity. Normal Doppler flow is identified in both ovaries. The right ovary measures 3.0 x 1.4 cm. The left ovary measures 4.7 x 2.3 cm. There is a 2.6 cm simple cyst in the left ovary. No free fluid is present within the pelvis.. RPTAT: AA IMPRESSION: Previously seen intrauterine gestation is no longer visualized. Thickened endometrium with slightly increased vascularity, may represent retained products of concep tion. Follow-up ultrasound and HCG levels is recommended. .Benedict Bolton MD, Date Time Electronically viewed and signed by .Benedict Bolton MD, on 01/13/2017 22:12 .S/
--- NOTE | 2017-01-13 22:16 | ERD ---
ER Documentation Chief Complaint Chief Complaint Vag bleed x 3 days. 8 weeks preg HPI 21-year-old female presents here to emergency department for evaluation, patient had vaginal bleeding for 3 days, was told to return here in emergency department for reevaluation, patient has been bleeding and has been spotting afterwards, not been more heavily bleeding, patient positive discharge home. Patient is approximately 8 weeks . 8 para 4 3. Patient denies any abdominal pain, denies any flank pain. Patient denies any hematuria or dysuria. Patient denies any fever or chills. ROS All systems reviewed and are negative except as per history of present illness. Medications Home Meds Active Scripts Metoclopramide* (Reglan*) 10 Mg Tablet, 10 MG PO Q6 Y for NAUSEA AND/OR VOMITING , #10 TAB Prov:ANH MICHAELS PA-C 01/12/17 Acetaminophen* (Tylophen*) 500 Mg Capsule, 1 CAP PO Q6H Y for PAIN AND OR ELEVATED TEMP, #20 CAP Prov:ANH MICHAELS PA-C 01/12/17 Nitrofurantoin Monohyd Macrocr* (Macrobid*) 100 Mg Capsr, 100 MG PO BID for 7 Days, #14 CAP Prov:NICOLE,DWIGHT 01/02/17 Apb07-Mbnp-Efidw Acid (Prenata Chewable) 1 Each Tab.chew, 1 TAB PO DAILY for 30 Days, TAB.CHEW Prov:NICOLE,DWIGHT 01/02/17 Ondansetron (Ondansetron Odt) 4 Mg Tab.rapdis, 4 MG PO Q8 Y for NAUSEA AND/OR VOMITING, #30 TAB Prov:MATEUS HERNANDEZ NP 12/02/16 Magaldrate/Simethicone* (Mylanta*) 355 Ml Susp, 30 ML PO QID Y for GASTROINTESTINAL UPSET, #1 BOTTLE Prov:MATEUS HERNANDEZ NP 12/02/16 Omeprazole* (Omeprazole*) 20 Mg Capsule.dr, 20 MG PO DAILY, #30 Prov:MATEUS HERNANDEZ NP 12/02/16 Reported Medications Vit-Iron Fumarate-FA ( Tablet) 1 Each Tablet, 1 TAB PO DAILY, TAB 06/08/16 Allergies Allergies: Coded Allergies: No Known Allergies (Verified Allergy, Unknown, 01/01/17) PMhx/Soc Medical and Surgical Hx: pt denies Medical Hx, pt denies Surgical Hx Hx Alcohol Use: No Hx Substance Use: No Hx Tobacco Use: No Smoking Status: Never smoker FmHx Family History: No coronary disease, No diabetes, No other Physical Exam Vitals Vital Signs Date Time Temp Pulse Resp B/P Pulse Ox O2 Delivery O2 Flow Rate FiO2 01/13/17 19:30 99.3 96 20 133/61 97 Physical Exam GENERAL: The patient is well developed and appropriate for usual state of health, in no apparent distress. CHEST: Clear to auscultation bilaterally. There are no rales, wheezes or rhonchi. HEART: Regular rate and rhythm. No murmurs, clicks, rubs or gallops. No S3 or S4. ABDOMEN: Soft, nontender and nondistended. Good bowel sounds. No rebound or guarding. No gross peritonitis. No gross organomegaly or masses. No [place] sign or McBurney point tenderness. BACK: No midline or flank tenderness. EXTREMITIES: Equal pulses bilaterally. There is no peripheral clubbing, cyanosis or edema. No focal swelling or erythema. Full range of motion. Grossly neurovascularly intact. NEURO: Alert and oriented. Cranial nerves 2-12 intact. Motor strength in all 4 extremities with 5/5 strength. Sensation grossly intact. Normal speech and gait. SKIN: There is no apparent rash or petechia. The skin is warm and dry. HEMATOLOGIC AND LYMPHATIC: There is no evidence of excessive bruising or lymphedema. No gross cervical, axillary, or inguinal lymphadenopathy. Vaginal: Small amount of blood in the vaginal vault, cervical loss is closed. No cervical motion tenderness or adnexal tenderness noted. Result Diagram: 01/13/172216 Results 24 hrs Laboratory Tests Test 01/13/17 22:17 White Blood Count 9.610^3/ul Red Blood Count 3.8610^6/ul Hemoglobin 11.7g/dl Hematocrit 35.0% Mean Corpuscular Volume 90.7fl Mean Corpuscular Hemoglobin 30.3pg Mean Corpuscular Hemoglobin Concent 33.4g/dl Red Cell Distribution Width 12.9% Platelet Count 11988^3/UL Mean Platelet Volume 10.5fl Neutrophils % 54.3% Lymphocytes % 36.5% Monocytes % 6.5% Eosinophils % 2.0% Basophils % 0.4% Nucleated Red Blood Cells % 0.0/100WBC Neutrophils # 5.210^3/ul Lymphocytes # 3.510^3/ul Monocytes # 0.610^3/ul Eosinophils # 0.210^3/ul Basophils # 0.010^3/ul Nucleated Red Blood Cells # 0.010^3/ul Urine Color YELLOW Urine Clarity CLEAR Urine pH 6.0 Urine Specific [place] 1.027 Urine Ketones NEGATIVEmg/dL Urine Nitrite NEGATIVEmg/dL Urine Bilirubin NEGATIVEmg/dL Urine Urobilinogen 2+mg/dL Urine Leukocyte Esterase TRACELeu/ul Urine Microscopic RBC 155/HPF Urine Microscopic WBC 11/HPF Urine Squamous Epithelial Cells FEW/HPF Urine Bacteria FEW/HPF Urine Mucus MODERATE/HPF Urine Hemoglobin 3+mg/dL Urine Glucose NEGATIVEmg/dL Urine Total Protein 1+mg/dl Beta HCG, Quantitative 9170.2mIU/ml PROCEDURE: US Pelvis. CLINICAL INDICATION: vaginal bleeding TECHNIQUE: Multiple sonographic images of the pelvis were obtained utilizing a transabdominal and endovaginal technique. The images were reviewed on a PACS workstation. COMPARISON: 01/11/17 FINDINGS: The uterus is normal in size and demonstrates a normal appearance of the myometrium. The endometrial stripe is heterogeneous in appearance and has the thickness of 21 mm. There is slightly increased vascularity. Previously seen intrauterine gestation is no longer visualized. The ovaries are normal in size and echogenicity. Normal Doppler flow is identified in both ovaries. The right ovary measures 3.0 x 1.4 cm. The left ovary measures 4.7 x 2.3 cm. There is a 2.6 cm simple cyst in the left ovary. No free fluid is present within the pelvis.. RPTAT: AA IMPRESSION: Previously seen intrauterine gestation is no longer visualized. Thickened endometrium with slightly increased vascularity, may represent retained products of conception. Follow-up ultrasound and HCG levels is recommended. .Benedict Bolton MD, Date Time Electronically viewed and signed by .Benedict Bolton MD, on 01/13/2017 22: 12 .S/ CC: MATEUS HERNANDEZ NP Discussed this case with OB specialist, , recommended giving patient 3 day course of Methergine in to help with expulsion of possible retained products of conception, strict return to her precaution for any worsening symptoms, return to emergency department if bleeding does not resolve in 1 week. Procedures/MDM Medical Decision Making: Patients vaginal bleeding is most likely consistent of spontaneous . Patient does not show any evidence of hypovolemic shock. Patients hemoglobin and hematocrit is stable. There is low suspicion for ectopic . SELIN results showed no intrauterine that was previously seen, thickened endometrium consistent with possible retained products of conception since patient just recently passed tissue, as per discussion with OB specialist, patient will be given Methergine to go home with strict return to ER precaution.. BetaHCG Quantitative is appropriate with the , has decreased..The patient is Rh+, does not need RhoGAM this time. There is no signs of symptoms of dehydration. There is low suspicion for sepsis. Patient appears well and is hemodynamically stable. Disposition: Home. Condition: Stable Rx: Methergine, ibuprofen, tramadol Instructions: Patient is advised to do bed rest, avoid heavy lifting, and avoid having sex until cleared by OB doctor. Patient is advised to follow up with OB doctor 48 hours. Patient is advised that is symptoms are worst, severe bleeding , dizziness, severe abdominal pain, fever, worst signs and symptoms to return to the emergency department immediately. Return to ER if bleeding does not stop in 1 week. Disclaimer: Inadvertent spelling and grammatical errors are likely due to EHR/ dictation software use and do not reflect on the overall quality of patient care. Also, please note that the electronic time recorded on this note does not necessarily reflect the actual time of the patient encounter. Departure Diagnosis: Primary Impression: Spontaneous Condition: Stable Patient Instructions: Miscarriage, Spontaneous (Completed) Additional Instructions: Patient is advised to do bed rest, avoid heavy lifting, and avoid having sex until cleared by OB doctor. Patient is advised to follow up with OB doctor 48 hours. Patient is advised that is symptoms are worst, severe bleeding, dizziness , severe abdominal pain, fever, worst signs and symptoms to return to the emergency department immediately. Return to ER if bleeding does not stop in 1 week. MATEUS HERNANDEZ NP Jan 13, 2017 22:16
[2017-01-13 22:34] LABS: BASOPHILS % 0.4 % (0.0-2.0); EOSINOPHILS # 0.2 10^3/ul (0.0-0.5); HEMOGLOBIN 11.7 g/dl (12.0-16.0); LYMPHOCYTES # 3.5 10^3/ul (0.8-2.9); LYMPHOCYTES % 36.5 % (15.0-51.0); MEAN CORPUSCULAR HEMOGLOBIN 30.3 pg (29.0-33.0); MEAN CORPUSCULAR HGB CONC 33.4 g/dl (32.0-37.0); MEAN CORPUSCULAR VOLUME 90.7 fl (82.0-101.0); MEAN PLATELET VOLUME 10.5 fl (7.4-10.4); MONOCYTE # 0.6 10^3/ul (0.3-0.9); MONOCYTES % 6.5 % (0.0-11.0); NEUTROPHIL # 5.2 10^3/ul (1.6-7.5); NEUTROPHILS % 54.3 % (39.0-77.0); PLATELET COUNT 212 10^3/UL (140-415); RED BLOOD COUNT 3.86 10^6/ul (4.20-5.40); RED CELL DISTRIBUTION WIDTH 12.9 % (11.5-14.5); WHITE BLOOD COUNT 9.6 10^3/ul (4.8-10.8)
[2017-01-13 22:41] LABS: ADD UMIC YES; UR ASCORBIC ACID 40 mg/dL (NEGATIVE); UR BACTERIA FEW /HPF (NONE SEEN); UR BILIRUBIN (Dip) NEGATIVE (NEGATIVE); UR BLOOD (Dip) 3+ mg/dL (NEGATIVE); UR CLARITY CLEAR (CLEAR); UR COLOR YELLOW (YELLOW); UR GLUCOSE (Dip) NEGATIVE (NEGATIVE); UR KETONES (Dip) NEGATIVE (NEGATIVE); UR LEUKOCYTE ESTERASE (Dip) TRACE Leu/ul (NEGATIVE); UR MUCUS MODERATE /HPF (NONE SEEN); UR NITRITE (Dip) NEGATIVE (NEGATIVE); UR RBC 155 /HPF (0-5); UR SPECIFIC GRAVITY (Dip) 1.027 (1.003-1.030); UR SQUAMOUS EPITHELIAL CELL FEW /HPF (FEW); UR TOTAL PROTEIN (Dip) 1+ mg/dl (NEGATIVE); UR UROBILINOGEN (Dip) 2+ mg/dL (NEGATIVE)
== END | disposition home or self-care (01) ==
LOC: FTE 19:25
DX: O03.9 Complete or unspecified spontaneous abortion without complication (principal); R10.2 Pelvic and perineal pain
CPT/HCPCS: 36415; 76801; 76817; 81001; 84702; 85025; Z7502